=== PATIENT | female | born 1975 | race Caucasian/White ===

== ENCOUNTER → 2016-06-06 | Outpatient (CLI) | payer BC ==
[~2016-06-06] MED LIST: IBUP-1542 PO; ONDA4TAB8 PO; OXYC-281 PO
[2016-06-06 17:14] LABS: ADD UMIC YES; URINE BILIRUBIN (Dip) NEGATIVE (NEGATIVE); URINE BLOOD (Dip) 3+ (NEGATIVE); URINE COLOR LT. YELLOW (YELLOW); URINE GLUCOSE (Dip) NEGATIVE (NEGATIVE); URINE KETONES (Dip) NEGATIVE (NEGATIVE); URINE LEUKOCYTE ESTERASE (Dip) NEGATIVE (NEGATIVE); URINE NITRITE (Dip) NEGATIVE (NEGATIVE); URINE TOTAL PROTEIN (Dip) NEGATIVE (NEGATIVE); URINE UROBILINOGEN (Dip) 0.2 E.U./dL (0.1-1.0)
[2016-06-06 17:39] LABS: BACTERIA,URINE FEW; SQUAMOUS EPITHELIAL CELL,UR FEW
[2016-06-06 17:40] LABS: MUCUS,URINE MANY
== END | disposition home or self-care (01) ==
LOC: LAB 16:31
PROVIDERS: ATTEND Urology
DX: N39.0 Urinary tract infection, site not specified (principal)
CPT/HCPCS: 81001; 81003; 87086

== ENCOUNTER → 2016-07-18 | Outpatient (CLI) | payer BC ==
--- NOTE | 2016-07-18 22:37 | RADRPT ---
PROCEDURE: CT Abdomen and pelvis without contrast. CLINICAL INDICATION: Abdominal pain. TECHNIQUE: CT scan of the abdomen and pelvis was performed on a multi-detector high-resolution CT scanner. Contiguous axial images were obtained from the lung bases to the ischial tuberosities wit hout intravenous contrast. Coronal and sagittal reformatted images were also obtained. Images were reviewed on the PACS workstation. One or more of the following dose reduction techniques were used: - Automated exposure control. - Adjustment of the mA and/or kV according to patient size. - Use of iterative reconstruction technique. Exam CTD/vol = 20.16 mGy. Total exam DLP = 1228.26 mGy-cm. COMPARISON: 02/16/2015 FINDINGS: Evaluation of the lung bases demonstrates mild bibasilar atelectasis. Abdomen: The liver is normal in size. There is no focal mass or dilatation of the biliary tree. T he gallbladder is not distended. The spleen, pancreas and bilateral adrenal glands are within froilan l limits. Bilateral kidneys are normal in size with no contour deforming mass identified. There is no radiopaque renal or ureteral calculus identified. There is no hydronephrosis or hydroureter. T here is no retroperitoneal adenopathy. The abdominal aorta is of normal caliber with mild scattered atherosclerotic calcifications. There is a small umbilical hernia containing fat. There is no abnormal bowel wall thickening or dis tension. There is no bowel obstruction or free air. A normal appendix is identified. There is no diverticulosis or diverticulitis. There is no ascites. Pelvis: The bladder is unremarkable. The uterus and adnexa are within normal limits. There are bi lateral tubal ligation clips. There is no significant pelvic adenopathy or free fluid. Evaluation of the osseous structures demonstrates no suspicious lytic or blastic lesion. IMPRESSION: No acute abnormality identified within the abdomen and pelvis. Mild vascular calcifications reflective of atherosclerosis. .Adalberto Linares MD, MD Date Time Electronically viewed and signed by .Adalberto Linares MD, MD on 07/18/2016 22:36 .T/
== END | disposition home or self-care (01) ==
LOC: OBT 13:17
PROVIDERS: ATTEND Obstetrics & Gynecology
DX: N73.9 Female pelvic inflammatory disease, unspecified (principal); I70.90 Unspecified atherosclerosis
CPT/HCPCS: 74176

== ENCOUNTER 2016-07-27 07:30 | Inpatient (IN) | payer BC ==
[2016-07-23 14:17] LABS: ADD SCAN DIFF NO
[2016-07-23 14:19] LABS: ADD UMIC YES; URINE BILIRUBIN (Dip) NEGATIVE (NEGATIVE); URINE BLOOD (Dip) 3+ (NEGATIVE); URINE COLOR YELLOW (YELLOW); URINE GLUCOSE (Dip) NEGATIVE (NEGATIVE); URINE KETONES (Dip) NEGATIVE (NEGATIVE); URINE LEUKOCYTE ESTERASE (Dip) NEGATIVE (NEGATIVE); URINE NITRITE (Dip) NEGATIVE (NEGATIVE); URINE TOTAL PROTEIN (Dip) NEGATIVE (NEGATIVE); URINE UROBILINOGEN (Dip) 0.2 E.U./dL (0.1-1.0)
[2016-07-23 14:21] LABS: BASOPHILS % 0.2 % (0.0-2.0); EOSINOPHILS # 0.1 10^3/ul (0.0-0.5); EOSINOPHILS % 0.9 % (0.0-7.0); HEMATOCRIT 38.8 % (37.0-47.0); HEMOGLOBIN 12.8 g/dl (12.0-16.0); LYMPHOCYTES # 1.3 10^3/ul (0.8-2.9); LYMPHOCYTES % 18.9 % (15.0-51.0); MEAN CORPUSCULAR HEMOGLOBIN 28.2 pg (29.0-33.0); MEAN CORPUSCULAR VOLUME 85.5 fl (82.0-101.0); MEAN PLATELET VOLUME 9.7 fl (7.4-10.4); MONOCYTE # 0.3 10^3/ul (0.3-0.9); MONOCYTES % 4.7 % (0.0-11.0); NEUTROPHILS % 74.8 % (39.0-77.0); PLATELET COUNT 354 10^3/UL (140-415); RED BLOOD COUNT 4.54 10^6/ul (4.20-5.40); RED CELL DISTRIBUTION WIDTH 12.2 % (11.5-14.5); WHITE BLOOD COUNT 6.6 10^3/ul (4.8-10.8)
[2016-07-23 14:33] LABS: INR 0.99; PROTIME 13.1 Sec (12.2-14.2)
[2016-07-23 14:34] LABS: ALBUMIN 4.4 g/dl (3.3-4.9); CHLORIDE 99 mmol/L (97-110); PARTIAL THROMBOPLASTIN TIME 28.1 Sec (25.0-35.0); POTASSIUM 3.4 mmol/L (3.5-5.1); SODIUM 137 mmol/L (135-144)
[2016-07-23 14:36] LABS: CHOLESTEROL 234 mg/dl (100-200); CREATININE 0.43 mg/dl (0.44-1.00)
[2016-07-23 14:37] LABS: ALBUMIN/GLOBULIN RATIO 1.41; ALKALINE PHOSPHATASE 79 IU/L (42-121); ANION GAP 14 (8-16); ASPARTATE AMINO TRANSFERASE 32 IU/L (15-46); BILIRUBIN,INDIRECT 1.2 mg/dl (0-1.1); BILIRUBIN,TOTAL 1.2 mg/dl (0.2-1.3); BLOOD UREA NITROGEN 11 mg/dl (7-20); CARBON DIOXIDE 27 mmol/L (21-31); GLUCOSE 100 mg/dl (70-220); TOTAL PROTEIN 7.5 g/dl (6.1-8.1); TRIGLYCERIDES 168 mg/dl (0-149)
[2016-07-23 14:38] LABS: ALANINE AMINOTRANSFERASE 37 IU/L (13-69); CALCIUM 9.3 mg/dl (8.4-10.2); CHOL/HDL RATIO 4.2 RATIO; HDL CHOLESTEROL 55 mg/dl (34-88)
--- NOTE | 2016-07-23 14:46 | RADRPT ---
PROCEDURE: Chest x-ray CLINICAL INDICATION: Preop TECHNIQUE: Chest single view COMPARISON: None FINDINGS: The heart is normal in size. The pulmonary vessels are normal in caliber. The lungs are clear. Th e costophrenic angles are sharp. The visualized bony thorax is unremarkable. IMPRESSION: No acute cardiopulmonary disease. RPTAT: HH .Armand Ribera MD, Date Time Electronically viewed and signed by .Armand Ribera MD, MD on 07/23/2016 14:45 .W/
[2016-07-23 15:45] LABS: SQUAMOUS EPITHELIAL CELL,UR FEW
--- NOTE | 2016-07-23 20:54 | PREOPHP ---
DATE OF ADMISSION: 07/27/2016 HISTORY OF PRESENT ILLNESS: This is a 40-year-old female 3, para 3. This patient had seen me in 11/2015 due to a referral for left ovarian pain, pelvic pain that has been in intractable, and urinary incontinence. The patient had a history of heavy periods with clots. She has been changin g pads every 2 to 3 hours for 5 days with a history of anemia, pelvic pain that has been all over si nce the last 4 years with dyspareunia, dysmenorrhea, and nocturia about 2 times, insomnia, headaches , frequency, urinary stress incontinence, and urgency. She had a section and a tubal ligat ion and the last due to a breech presentation. REVIEW OF SYSTEMS: Negative for cardiovascular disease, negative for lung disease, negative for GI disease, negative for smoking or drinking. ALLERGIES: SHE IS NOT ALLERGIC TO ANY MEDICATION. SOCIAL HISTORY: She does not drink or smoke. FAMILY HISTORY: Hypertension, diabetes. MEDICATIONS: At this time, she is not taking any medication. PHYSICAL EXAMINATION: GENERAL APPEARANCE: Good. VITAL SIGNS: The patient is 5 feet tall. She weighs 182 pounds. The blood pressure is 120/70. Pu lse is 80. She is afebrile. HEAD AND NECK: Normal. CHEST: Clear. HEART: Normal sinus rhythm. LUNGS: Clear. BREASTS: Soft, nontender. No masses. ABDOMEN: Soft, obese with no masses. PELVIC: With painful bladder. Uterus is very painful on mobilization to either side with severe co nstipation as well. Mobilization of the uterus created excruciating pain with the possibility of ad hesions. Also with an ultrasound that revealed that she has a uterus with uterine fibroids that are 2.6 cm anteriorly. Both ovaries in the ultrasound were normal. The patient's adnexa were also jose y painful, excruciating pain on the left adnexa. Rectal examination is normal, painful. EXTREMITIES: Normal with normal pulses and no edema. The patient had been treated for UTI due to E. coli. At this present time, she states her pain has been constantly on the left side on the left lower quadrant daily, barely treated with the medicatio ns I gave her for pain. She has seen a urologist who stated it was negative findings and also she h as seen a GI with no bowel problems. The patient is being advised for a total abdominal hysterectom y, bilateral salpingectomy, and possible left oophorectomy pending the findings on the surgery. DIAGNOSES: 1. Intractable pelvic pain. 2. Menometrorrhagia. 3. Endometriosis versus pelvic inflammatory disease. 4. Possible adhesions. 5. Fibroid uterus. PLAN: She is undergoing this procedure, and she has been advised of the possible risks and possible complications of the procedure with her alternatives and options. Written information was provided . She had no more questions and agreed to go ahead with the procedure with full understanding and n o more questions. Dictated By: TERRENCE ACOSTA/NTS Conf#: [id number] DID#: [id number]
[2016-07-26 10:28] VITALS: BMI 35.7
[~2016-07-27] VITALS: Ht 154.9 cm; Wt 80.1 kg
[~2016-07-27 07:30] MED LIST changes: +CEFAZOLIN 2 GM/50 ML (PMX) 50 ML IVPB ONE; +DEXTROSE 5%-LR 1,000 ML IV SCH
--- NOTE | 2016-08-04 23:14 | PREOPHP ---
DATE OF ADMISSION: 08/05/2016 HISTORY OF PRESENT ILLNESS: This is a 40-year-old female, 3, para 3. This patient has seen me in November of last year due to referral for left ovarian pain, pelvic pain that has been intracta ble and urinary incontinence. The patient had a history of heavy periods with clots. The patient a lso has a history of possible endometriosis with pelvic adhesions. She has been changing pads every 2 to 3 hours for 5 days with a history of anemia, chronic pelvic pain lasting 4 years with dyspareu jh, dysmenorrhea, nocturia, insomnia, headache frequency, urinary stress incontinence and urgency. She had a previous and a tubal ligation in the last , and she has been miserable until now that she is getting worse. The patient had tried medical treatment as antibiotics and or al contraceptives without success, and this is getting worse. She went to urology and gastroenterol ogy consultation, that pathology was ruled out. The ultrasound did not find a large uterus, but dur ing examination, the pelvis looked like she probably has adhesions. Every time we move the uterus t o either side, she is having excruciating pain, and it feels like bulky on the adnexal area and full . REVIEW OF SYSTEMS: Negative for cardiovascular disease, lung disease, GI disease and other systems. SOCIAL HISTORY: The patient doesn't drink or smoke. ALLERGIES: SHE HAS NO ALLERGIES. FAMILY HISTORY: Hypertension, diabetes. MEDICATIONS: At this time, she is only taking pain medication. PHYSICAL EXAMINATION: GENERAL APPEARANCE: Good. VITAL SIGNS: She is 5 feet tall. She weighs 180 pounds. The blood pressure is 120/70, pulse is 80 . She is afebrile. HEAD AND NECK: Normal. CHEST: Clear. HEART: Normal sinus rhythm. LUNGS: Clear. BREASTS: Soft, nontender. No masses. ABDOMEN: Soft, obese with no masses. Very painful examination when is done on the pelvic area with a painful bladder, uterus extremely painful on mobilization to either side with severe constipation as well. The patient with an ultrasound revealed that she had a uterus with small fibroids. Both adnexa are normal, extremely painful. RECTAL: Normal. EXTREMITIES: Normal pulses and no edema. The patient has been treated for a UTI lately. At this present time, she has chronic pelvic pain th at is constant, mainly on the left side, left lower quadrant, barely treated with medications for pa in. She has seen the urologist, like I said, with negative findings, GI also. The patient had been advised for an abdominal hysterectomy, bilateral salpingectomy, possible left oophorectomy pending the findings on the results of the surgery. DIAGNOSES: 1. Intractable pelvic pain. 2. Menometrorrhagia. 3. Endometriosis versus pelvic inflammatory disease. 4. Possible adhesions. 5. Fibroid uterus. She is undergoing this total abdominal hysterectomy, bilateral salpingectomy with preservation of th e ovaries if possible and possible left oophorectomy. She has been given information. Written info rmation was provided. She had no more questions and agreed to go ahead with the procedure with full understanding and no more questions after being explained of the alternatives, options, possible co mplications. The patient has agreed to go ahead with the procedure with full understanding. Dictated By: TERRENCE ACOSTA/JOURDAN Conf#: [id number] DID#: [id number]
[2016-08-05] VITALS (17 sets, daily range): BP systolic 99–149; BP diastolic 52–100; PULSE 74–114; RESP 12–20; Ht 154.9 cm; Wt 80.1 kg
[2016-08-05] MEDS ORDERED: CEFAZOLIN 2 GM/50 ML (PMX) 50 ML IVPB ONE (05:30)
[2016-08-05] MEDS ORDERED: LIDOCAINE 2% (SDV) 5 ML INJ ONE (06:55)
[2016-08-05] MEDS ORDERED: FENTAnyl 50 MCG/ML VIAL ONE (06:56)
[2016-08-05] MEDS ORDERED: ROCURONIUM 50 MG INJ ONE (06:56)
[2016-08-05] MEDS ORDERED: MIDAZOLAM 1 MG/ML 2 ML INJ ONE (06:56)
[2016-08-05] MEDS ORDERED: NEOSTIGMINE 3 MG/3 ML SYRINGE ONE (06:56)
[2016-08-05] MEDS ORDERED: GLYCOPYRROLATE 0.4 MG INJ ONE (06:56)
[2016-08-05] MEDS ORDERED: PROPOFOL 20 ML ONE (06:56)
[2016-08-05] MEDS ORDERED: HYDROmorphONE (0.2 MG/ML) 10ML SYG IV PRN ×3 (07:00)
[2016-08-05] MEDS ORDERED: LABETALOL HCL 20MG INJ IV PRN (07:00)
[2016-08-05] MEDS ORDERED: hydrALAzine 20 MG INJ IV PRN (07:00)
[2016-08-05] MEDS ORDERED: ONDANSETRON 4 MG INJ IV PRN (07:00)
[2016-08-05] MEDS ORDERED: OXYCODONE/ACETAMINOPHEN (5/325) TAB PO PRN ×2 (07:00)
[2016-08-05] MEDS ORDERED: ATROPINE 1 MG/10 ML SYRINGE IV PRN (07:00)
[2016-08-05] MEDS ORDERED: MEPERIDINE 25 MG INJ IV PRN (07:00)
[2016-08-05] MEDS ORDERED: morphine (1 MG/ML) 10ML SYRINGE IV PRN ×3 (07:00)
[2016-08-05] MEDS ORDERED: DIPHENHYDRAMINE 50 MG INJ IV PRN (07:00)
[2016-08-05] MEDS ORDERED: MIDAZOLAM 1 MG/ML 2 ML INJ IV PRN (07:00)
[2016-08-05] MEDS ORDERED: FENTAnyl 50 MCG/ML VIAL IV PRN ×2 (07:00)
[2016-08-05] MEDS ORDERED: EPHEDrine SULFATE 50 MG/5 ML SYG IV PRN (07:00)
[2016-08-05] MEDS ORDERED: DEXAMETHASONE 4 MG/ML 1 ML INJ ONE (07:04)
[2016-08-05] MEDS ORDERED: ONDANSETRON 4 MG INJ ONE (07:05)
[2016-08-05] MEDS ORDERED: morphine SULFATE/PF (10 MG/10 ML) INJ ONE (07:05)
[2016-08-05] MEDS ORDERED: SUCCINYLCHOLINE CHLORIDE 100 MG/5 ML SYG IV ONE (07:30)
[2016-08-05] MEDS ORDERED: THROMBIN 5000 UNIT VIAL ONE (09:13)
--- NOTE | 2016-08-05 10:11 | HPN ---
Date/Time of Note Date/Time of Note DATE: 08/05/16 TIME: 10:11 Interval H&P Admission Note Pt. seen H&P reviewed: No system changes TERRENCE OROZCO MD Aug 05, 2016 10:11
--- NOTE | 2016-08-05 10:17 | OPR ---
Date/Time of Note Date/Time of Note DATE: 08/05/16 TIME: 10:12 Operative Report Free Text/Dictation SWETHA BILATERAL SALPINGECTOMY LYSIS OF ADHESIONS BILATERAL OVARIAN BIOPSY Procedure Date: Aug 05, 2016 Preoperative Diagnosis CHRONIC INTRACTABLE PELVIC MENOMETRORRHAGIA ENDOMETRIOSIS PELVIC ADHESIONS FIBROID UTERUS Postoperative Diagnosis SAME Surgeon: TERRENEC OROZCO MD Traveling Storekeeper: NIGEL PATTERSON M.D. assistant professor of business: NIGEL PATTERSON M.D. Anesthesia: general Anesthesiologist: DEVAN BONILLA MD Estimated Blood Loss: 50 - 100 ml's Specimens UTERUS AND CERVIX BILATERAL TUBES BILATERAL OVARIAN BIOPSIES Complications: None Pt Condition Post Procedure: stable Disposition: PACU TERRENCE OROZCO MD Aug 05, 2016 10:17
--- NOTE | 2016-08-05 11:25 | OPR ---
DATE OF OPERATION: 08/05/2016 PROCEDURE: Total abdominal hysterectomy, bilateral ovarian biopsy, bilateral salpingectomy, lysis o f adhesions. PREOPERATIVE DIAGNOSES: Chronic intractable pelvic pain, intractable menometrorrhagia, pelvic endom etriosis, pelvic adhesions, fibroid uterus. POSTOPERATIVE DIAGNOSIS: Chronic intractable pelvic pain, intractable menometrorrhagia, pelvic endo metriosis, pelvic adhesions, fibroid uterus. SURGEON: Terrence Gasca MD GRINDING MACHINE TENDER: Seymour Patterson MD ANESTHESIOLOGIST: Edgard Echeverria MD ANESTHESIA: General. COMPLICATIONS: Procedure with no complications under general anesthesia. PROCEDURE: The patient was given general anesthesia, placed in the supine position. A Mora cathet er was placed in the bladder. An elliptical incision was made around the previous old scar and the scar was removed for new edges for healing. The abdomen was opened in layers without difficulties. Abdominal cavity was reached. There was a ____ of omentum that was attached to the area of the lef t adnexa. This omental adhesions were large and they were lysed from the left pelvic area. Then, t he exploration of the cavity revealed that the left ovary had a small implant of possible endometrio sis. The uterus was small with excrescences as possible early fibroids. Both tubes had signs of tu bal ligation with clips. The right ovary had small fibromas on it. There were implants of endometr iosis throughout the pelvic area with no major endometriomas. The self-retaining retractor was plac ed and the uterus was held with a Lizz clamp and the round ligaments were clamped, cut and tied and also the LigaSure instrument was used with bipolar current up to three green levels. The anterior broad ligament was incised and the bladder flap was made. There were adhesions of the bladder on th e cervix from previous that were carefully dissected and pulled down. The ovarian ligamen t and tubes were grabbed with the LigaSure instrument on both sides, clamped. After that the curren t with bipolar curette was used and the incision was made. Skeletonization of both uterine vessels were done and the uterine vessels were clamped with the bipolar instrument for cauterization and inc ision. At this level, the bladder was pushed down some more and the cardinal ligaments were clamped with straight Petty's and the incision was made and wkqlyj-qr-bspdd sutures were done with #1 Vicr yl. These stitches were held going far down. The uterosacral ligaments were also clamped, cut and tied with #1 Vicryl and with the Liban scissors the posterior vaginal cuff was entered and the uterus was removed. The corners of the vagina were held with Kochers and also the anterior and post erior lip of the vaginal wall. Ccewws-mx-ilbsg sutures were used to the corners of the vaginal cuff in both places involving the cardinal ligaments with it for support. The mtnifj-ns-fktmt sutures w ere done and these sutures were held. The whole vagina was closed with interrupted sutures with #1 Vicryl. At this time, there was small bleeding behind the bladder that was sutured with #2-0 SH and the bleeding stopped. The cavity was visualized under water with good hemostasis. At this point, the right and left tube were removed after using the impact LigaSure instrument. There was a small area in the left ovary of possible endometriosis that was biopsied and sent for biopsy. Also, the s mall fibroma from the right ovary was also removed for biopsy and the procedure was finished applyin g Surgicel and Interceed to both ovaries, and also ____ graft to avoid severe adhesions on the area . Surgicel was placed on the vaginal cuff. The sponge count was correct and the ureters were tracke d down with good tracking and in good peristalsis. The abdomen had been cleaned out several times w ith good return and clear with no active bleeding. The peritoneum was closed now with 2-0 Vicryl. The fascia was closed with a PDS looped suture, a Aleksandr drain was used underneath on top of the fasc ia to prevent seroma since it was about 10 cm of fatty tissue on top of the fascia. This Aleksandr drai n was removed out of the skin from a different incision about 5 cm up to the left side and was fixed to the skin with a 2-0 nylon suture. The subcutaneous tissue was closed with a 2-0 Vicryl and the skin was closed with a subcuticular with 3-0 Monocryl. Dermabond was used on the skin, and Steri-St rips and the patient tolerated the procedure well and left the OR awake and stable. Sponge counts, instrument counts were correct. Intravenous antibiotics were given for prophylaxis. Blood loss was minimal and the urine was clear at the end of the procedure. Dictated By: TERRENCE ACOSTA/NTS Conf#: [id number] DID#: [id number] CC: SEYMOUR PATTERSON MD;*EndCC*
[2016-08-05] MEDS ORDERED: BISACODYL (EC) 5 MG TAB PO PRN (13:00)
[2016-08-05] MEDS ORDERED: ZOLPIDEM 5 MG TAB PO PRN (13:00)
[2016-08-05] MEDS ORDERED: DIPHENHYDRAMINE 50 MG CAP PO PRN (13:00)
[2016-08-05] MEDS ORDERED: HYDROCODONE/APAP (5/325) TAB PO PRN (13:00)
[2016-08-05] MEDS: METOCLOPRAMIDE 10 MG TAB PO SCH ×2 (13:18→17:45)
[2016-08-05] MEDS: KETOROLAC 30 MG INJ IV SCH ×2 (13:19→19:20)
[2016-08-05] MEDS: CEFAZOLIN 1 GM/50 ML (PMX) 50 ML IVPB SCH ×2 (13:20→21:16)
[2016-08-05] MEDS: LACTATED RINGER'S 1,000 ML IV SCH ×2 (13:20→21:54)
[2016-08-06] MEDS: KETOROLAC 30 MG INJ IV SCH ×4 (00:17→18:43)
[2016-08-06] MEDS: METOCLOPRAMIDE 10 MG TAB PO SCH ×4 (00:17→18:43)
[2016-08-06] MEDS: CEFAZOLIN 1 GM/50 ML (PMX) 50 ML IVPB SCH (05:38)
[2016-08-06 05:40] LABS: ADD SCAN DIFF NO
[2016-08-06 05:45] LABS: BASOPHILS % 0.1 % (0.0-2.0); HEMATOCRIT 33.5 % (37.0-47.0); HEMOGLOBIN 10.6 g/dl (12.0-16.0); LYMPHOCYTES # 1.8 10^3/ul (0.8-2.9); LYMPHOCYTES % 14.7 % (15.0-51.0); MEAN CORPUSCULAR HEMOGLOBIN 27.9 pg (29.0-33.0); MEAN CORPUSCULAR HGB CONC 31.6 g/dl (32.0-37.0); MEAN CORPUSCULAR VOLUME 88.2 fl (82.0-101.0); MEAN PLATELET VOLUME 10.1 fl (7.4-10.4); MONOCYTE # 0.8 10^3/ul (0.3-0.9); MONOCYTES % 6.4 % (0.0-11.0); NEUTROPHIL # 9.4 10^3/ul (1.6-7.5); NEUTROPHILS % 78.5 % (39.0-77.0); PLATELET COUNT 286 10^3/UL (140-415); RED CELL DISTRIBUTION WIDTH 12.7 % (11.5-14.5); WHITE BLOOD COUNT 11.9 10^3/ul (4.8-10.8)
[2016-08-06 06:05] LABS: POTASSIUM 4.1 mmol/L (3.5-5.1)
[2016-08-06 06:08] LABS: CREATININE 0.47 mg/dl (0.44-1.00)
[2016-08-06] MEDS: LACTATED RINGER'S 1,000 ML IV SCH (06:08)
[2016-08-06 06:09] LABS: CALCIUM 9.2 mg/dl (8.4-10.2)
[2016-08-06 07:27] VITALS: BP 100/51; RESP 20
--- NOTE | 2016-08-06 11:44 | PN ---
Date/Time of Note Date/Time of Note DATE: 08/06/16 TIME: 11:42 Assessment/Plan Lines/Catheters IV Catheter Type (from Nrsg): Peripheral IV Mora in Place (from Nrsg): Yes Subjective 24 Hr Interval Summary feels good vital are stable not in pain ambulating already not passing gases yet incision dry drain is draining bloody fluid Constitutional: BM, ambulates, flatus, improved, no complaints, urine output Feeding: advancing diet Detailed Summary Eyes: no complaints ENT: no complaints Respiratory: no complaints Cardiovascular: no complaints Gastrointestinal: no complaints Genitourinary: no complaints Musculoskeletal: no complaints Skin: no complaints Neurologic: no complaints Endocrine: no complaints Lymphatic: no complaints Psychological: nl mood/affect, no complaints Immunologic: no complaints Exam/Review of Systems Vital Signs Vitals Vital Signs Date Time Temp Pulse Resp B/P Pulse Ox O2 Delivery O2 Flow Rate FiO2 08/06/16 07:27 98.8 71 20 100/51 95 08/05/16 21:57 Room Air Intake and Output 08/05/16 08/05/16 08/06/16 15:00 23:00 07:00 Intake Total 1500 ml 1100 ml 1050 ml Output Total 175 ml 10 ml Balance 1325 ml 1090 ml 1050 ml Exam Constitutional: alert, oriented, well developed Psych: nl mood/affect, no complaints Head: atraumatic, normocephalic Eyes: EOMI, nl conjunctiva, nl lids, nl sclera ENMT: mucosa pink and moist, nl external ears & nose, nl lips & teeth, nl nasal mucosa & septum Neck: non-tender, supple Respiratory: clear to auscultation, normal air movement Cardiovascular: nl pulses, regular rate and rhythm Gastrointestinal: nl liver, spleen, non-tender, soft Musculoskeletal: nl extremities to inspection, nl gait and stance Extremities: normal pulses Neurological: OCCUPATIONAL 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
[2016-08-06] MEDS ORDERED: BISACODYL (EC) 5 MG TAB PO ONE (12:00)
[2016-08-06 20:00] VITALS: BP 116/59; RESP 20
[2016-08-07] MEDS: KETOROLAC 30 MG INJ IV SCH ×4 (00:29→19:07)
[2016-08-07] MEDS: METOCLOPRAMIDE 10 MG TAB PO SCH ×5 (00:29→23:45)
[2016-08-07 05:52] LABS: ADD SCAN DIFF NO
[2016-08-07 05:56] LABS: BASOPHILS % 0.4 % (0.0-2.0); EOSINOPHILS # 0.1 10^3/ul (0.0-0.5); EOSINOPHILS % 1.4 % (0.0-7.0); HEMATOCRIT 32.3 % (37.0-47.0); HEMOGLOBIN 10.5 g/dl (12.0-16.0); LYMPHOCYTES # 2.7 10^3/ul (0.8-2.9); LYMPHOCYTES % 33.1 % (15.0-51.0); MEAN CORPUSCULAR HEMOGLOBIN 28.7 pg (29.0-33.0); MEAN CORPUSCULAR HGB CONC 32.5 g/dl (32.0-37.0); MEAN CORPUSCULAR VOLUME 88.3 fl (82.0-101.0); MEAN PLATELET VOLUME 10.1 fl (7.4-10.4); MONOCYTE # 0.7 10^3/ul (0.3-0.9); MONOCYTES % 7.8 % (0.0-11.0); NEUTROPHIL # 4.7 10^3/ul (1.6-7.5); NEUTROPHILS % 57.2 % (39.0-77.0); PLATELET COUNT 275 10^3/UL (140-415); RED BLOOD COUNT 3.66 10^6/ul (4.20-5.40); RED CELL DISTRIBUTION WIDTH 12.7 % (11.5-14.5); WHITE BLOOD COUNT 8.3 10^3/ul (4.8-10.8)
[2016-08-07 07:51] VITALS: BP 124/59; RESP 20
[2016-08-07] MEDS: HYDROCODONE/APAP (5/325) TAB PO PRN ×2 (08:45→15:51)
--- NOTE | 2016-08-07 09:46 | PN ---
Date/Time of Note Date/Time of Note DATE: 08/07/16 TIME: 09:44 Assessment/Plan Lines/Catheters IV Catheter Type (from Nrsg): Peripheral IV Mora in Place (from Nrsg): Yes Subjective 24 Hr Interval Summary DAY 2 POSTOP AFEBRILE, WEAK ,UNABLE TO HAVE A BM INCISION DRY, DRAINING SOME FLUID STILL. CBC STABLE Feeding: advancing diet Pain Control: well controlled Detailed Summary Eyes: no complaints ENT: no complaints Respiratory: no complaints Cardiovascular: no complaints Gastrointestinal: no complaints Genitourinary: no complaints Musculoskeletal: no complaints Skin: no complaints Neurologic: no complaints Endocrine: no complaints Lymphatic: no complaints Psychological: nl mood/affect, no complaints Immunologic: no complaints Exam/Review of Systems Vital Signs Vitals Vital Signs Date Time Temp Pulse Resp B/P Pulse Ox O2 Delivery O2 Flow Rate FiO2 08/07/16 07:51 98.7 80 20 124/59 96 08/05/16 21:57 Room Air Intake and Output 08/06/16 08/06/16 08/07/16 15:00 23:00 07:00 Intake Total 2080 ml 600 ml Balance 2080 ml 600 ml Exam Constitutional: alert, oriented, well developed Psych: nl mood/affect, no complaints Head: atraumatic, normocephalic Eyes: EOMI, nl conjunctiva, nl lids, nl sclera ENMT: mucosa pink and moist, nl external ears & nose, nl lips & teeth, nl nasal mucosa & septum Neck: non-tender, supple Respiratory: clear to auscultation, normal air movement Cardiovascular: nl pulses, regular rate and rhythm Gastrointestinal: nl liver, spleen, non-tender, soft Musculoskeletal: nl extremities to inspection, nl gait and stance Extremities: normal pulses Neurological: GOODYEAR STITCHER II-XII intact, nl mental status, nl speech, nl strength Skin: nl turgor, rash or lesions Lymph: nl lymph nodes Results Result Diagram: 08/07/16 0531 08/06/16 0515 TERRENCE OROZCO MD Aug 07, 2016 09:46
[2016-08-07] MEDS ORDERED: BISACODYL (EC) 5 MG TAB PO ONE (10:00)
[2016-08-07 19:00] VITALS: BP 125/70; RESP 16
[2016-08-08] MEDS: KETOROLAC 30 MG INJ IV SCH ×2 (00:39→06:15)
[2016-08-08] MEDS: METOCLOPRAMIDE 10 MG TAB PO SCH ×2 (06:14→11:49)
[2016-08-08] MEDS: HYDROCODONE/APAP (5/325) TAB PO PRN ×2 (06:19→13:16)
[2016-08-08 07:19] VITALS: BP 120/56; RESP 16
--- NOTE | 2016-08-08 12:45 | PD.PPDC ---
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
--- NOTE | 2016-08-08 13:28 | DS ---
DATE OF ADMISSION: 08/05/2016 DATE OF DISCHARGE: 08/08/2016 HISTORY AND HOSPITAL COURSE: This is a 40-year-old female 3, para 3. The patient had seen me for pelvic pain that has been intractable, urinary incontinence, heavy periods with clots and pre menstrual syndrome. The patient had been having difficulties with bleeding, endometriosis, possible PID, adhesions and fibroid uterus. She had been referred to practice office associate and urologist, and they had ruled out the possibility of any other causes of her pain. She had a history of endometrio sis. She had a history of C-sections, for which adhesions were thought of as possible complications of previous surgeries and with chronic pelvic pain. The patient also had a hypertrophic uterus and she underwent an exploratory laparotomy with WSETHA and bilateral salpingectomy with preservation of b oth ovaries. She had been advised to go home with the J-Levy drain that she had on the incision due to her obesi ty. This is still draining and it will be removed in the office. The pathology report was negative . There were implants of endometriosis in the pelvis that were not biopsied. There was a fibroma i n the right ovary that was biopsied and cyst on the left ovary that was also biopsied as being benig n. The endometrium was disordered, possibly pre-hyperplastic. The patient was advised that her chr onic pelvic pain most likely was related to adhesions since there were of adhesions of omentu m to her bowel and adnexa on the left side. She also had implants of endometriosis. There were no signs of infection. She underwent the procedure with no complications. She had laboratory testing that was near normal with a hemoglobin of 10.5 and originally 12.8. She is advised to eat red meat and take iron and vitamins. She was on ibuprofen and [place] p.r.n. S he is controlled with p.o. medications. The incision is healing, but the drain is still draining se rosanguineous liquid for which it is going to be kept until Friday. The patient is advised to see juan thacker in the office if she has any problems, any day at any time. She also is advised to see me for fol lowup in the office on Friday. She is advised to have regular diet. She is advised to look at her incision. If it is red or hot, or swelling or oozing, she needs to come back. The patient is voidi ng well with bowel movement, passing gases, ambulatory, stable and with no symptoms of anemia. She is very happy to be sent home and see me in the office as needed. Dictated By: TERRENCE ACOSTA/JOURDAN Conf#: [id number] DID#: [id number]
== END 2016-08-08 15:35 | disposition home or self-care (01) | DRG 743 ==
LOC: EDSTATUS 07:30 → REC 08-05 05:37 → MS2 08-05 11:05
PROVIDERS: ADMIT Obstetrics & Gynecology; ATTEND Obstetrics & Gynecology
PROC: 0DNS0ZZ (ICD-10-PCS; 2016-08-05)
PROC: 0UTC0ZZ Resection of Cervix, Open Approach (ICD-10-PCS; 2016-08-05)
PROC: 0UT70ZZ Resection of Bilateral Fallopian Tubes, Open Approach (ICD-10-PCS; 2016-08-05)
PROC: 0UB20ZX Excision of Bilateral Ovaries, Open Approach, Diagnostic (ICD-10-PCS; 2016-08-05)
PROC: 0UT90ZZ Resection of Uterus, Open Approach (ICD-10-PCS; principal; 2016-08-05 07:30)
DX: N73.6 Female pelvic peritoneal adhesions (postinfective) (principal); D27.0 Benign neoplasm of right ovary; R10.2 Pelvic and perineal pain; N80.3 Endometriosis of pelvic peritoneum; D25.9 Leiomyoma of uterus, unspecified; D64.9 Anemia, unspecified; E66.9 Obesity, unspecified; Z68.33 Body mass index [BMI] 33.0-33.9, adult; G89.29 Other chronic pain; N92.1 Excessive and frequent menstruation with irregular cycle; N83.202 Unspecified ovarian cyst, left side
CPT/HCPCS: 71010; 80048; 80053; 80061; 81001; 81003; 82962; 83036; 84703; 85025; 85610; 85730; 86703; 86706; 86803; 87086; J0330; J0690; J1100; J1885; J2250; J2274; J2405; J2710; J3010; J7120

== ENCOUNTER → 2017-01-29 | Outpatient (CLI) | payer BC ==
[2017-01-31 15:32] LABS: LUTEINIZING HORMONE 1.6 mIU/mL
== END | disposition home or self-care (01) ==
LOC: LAB 14:52
PROVIDERS: ATTEND Obstetrics & Gynecology
DX: N95.1 Menopausal and female climacteric states (principal)
CPT/HCPCS: 83001; 83002; 84443

== ENCOUNTER → 2017-06-24 | Outpatient (CLI) | END | disposition home or self-care (01) ==

== ENCOUNTER → 2017-11-28 | Outpatient (CLI) | END | disposition home or self-care (01) ==

== ENCOUNTER 2018-01-23 10:37 | Emergency (ER) | END 2018-01-23 14:51 | disposition home or self-care (01) ==

== ENCOUNTER → 2018-03-04 | Outpatient (CLI) | END | disposition home or self-care (01) ==

== ENCOUNTER → 2018-10-20 | Outpatient (CLI) | payer BC ==
[~2018-10-20] MED LIST changes: -CEFAZOLIN 2 GM/50 ML (PMX) 50 ML IVPB ONE; -DEXTROSE 5%-LR 1,000 ML IV SCH; -IBUP-1542 PO; -ONDA4TAB8 PO; +ONDA8TAB14 PO; -OXYC-281 PO
== END | disposition home or self-care (01) ==
LOC: LAB 14:51
PROVIDERS: ATTEND Obstetrics & Gynecology
DX: E03.9 Hypothyroidism, unspecified (principal); E10.9 Type 1 diabetes mellitus without complications; N39.0 Urinary tract infection, site not specified; E55.9 Vitamin D deficiency, unspecified
CPT/HCPCS: 82565; 82652; 83001; 83002; 83036; 84443; 84520; 85025

== ENCOUNTER → 2018-10-23 | Outpatient (CLI) | payer BC | END | disposition home or self-care (01) | LOC: LAB 11:25 | PROVIDERS: ATTEND Internal Medicine | DX: N39.0 Urinary tract infection, site not specified (principal) | CPT/HCPCS: 81001; 87086 ==

== ENCOUNTER → 2018-10-23 | Outpatient (CLI) | payer BC ==
[~2018-10-23] MED LIST changes: +IOHEXOL 300MG/ML 150 ML BTL ONE; +SOD CHLORIDE 0.9% 100 ML ONE
== END | disposition home or self-care (01) ==
LOC: C/S 14:20
PROVIDERS: ATTEND Obstetrics & Gynecology
DX: K76.0 Fatty (change of) liver, not elsewhere classified (principal); R10.9 Unspecified abdominal pain
CPT/HCPCS: 74178; Q9967

== ENCOUNTER → 2018-11-19 | Outpatient (CLI) | payer BC ==
[~2018-11-19] MED LIST changes: -IOHEXOL 300MG/ML 150 ML BTL ONE; -SOD CHLORIDE 0.9% 100 ML ONE
== END | disposition home or self-care (01) ==
LOC: LAB 08:02
PROVIDERS: ATTEND Internal Medicine
DX: K85.90 Acute pancreatitis without necrosis or infection, unspecified (principal); N39.0 Urinary tract infection, site not specified; R14.0 Abdominal distension (gaseous); D64.9 Anemia, unspecified
CPT/HCPCS: 80053; 81001; 82150; 85025; 86304; 87086